=== PATIENT | female | born 1955 | race African-American/Black ===

== ENCOUNTER → 2020-01-12 | Outpatient (CLI) | payer MEDICARE, MEDICAID ==
--- NOTE | 2020-01-14 12:59 | RADIOLOGY REPORT (SQ) ---
EXAM DESCRIPTION: NM WHOLE BODY BONE SCAN IMAGES COMPLETED DATE/TIME: 01/12/2020 12:18 pm REASON FOR STUDY: R93.5 ABN FINDINGS ON DX IMAGING OF ABD REGIONS, INC RETROPERITON, M48.07 R93.5 A BN FINDINGS ON DX IMAGING OF ABD REGIONS, INC RETROPE M48.07 SPINAL STENOSIS, LUMBOSACRAL REGION COMPARISON: MRI of the lumbar spine without and with contrast from 01/05/2012. RADIONUCLIDE AND DOSE: 20.3 millicuries Tc99m MDP. The route of agent administration: Intravenous. ADDITIONAL DRUGS AND DOSES: None. TECHNIQUE: Routine delayed images at 3 hour post radionuclide injection acquired of the bony skeleto n including anterior and posterior whole-body projections and additional focused images as needed. LIMITATIONS: None. FINDINGS: BONES: There is no scintigraphic evidence of osseous metastases. The uptake around the sh oulders, in the lumbar spine, and in the right hip and left knee is likely degenerative in etiology. There is no scintigraphic correlate for the sclerotic iliac lesions described on the MRI. KIDNEYS: Symmetric uptake. OTHER: No other finding. IMPRESSION: There is no scintigraphic evidence of osseous metastases or scintigraphic correlate for the sclerotic iliac lesions described on the MRI. The uptake around the shoulders, in the lumbar spi ne, and in the right hip and left knee is likely degenerative in etiology. COMMENT: Quality measure 147: Current bone scan is compared with any available plain radiographs, p rior bone scans, and CT/MRI. TECHNICAL DOCUMENTATION: JOB ID: [id number] 2010 [employer]- All Rights Reserved Reading location - IP/workstation name: [email or web address]
== END ==
LOC: RAD 08:36
PROVIDERS: ATTEND Physician Assistant
DX: R93.5 Abnormal findings on diagnostic imaging of other abdominal regions, including retroperitoneum (principal)
CPT/HCPCS: 78306; A9503; Q9969